=== PATIENT | female | born 1955 | race Caucasian/White ===

== ENCOUNTER → 2018-10-08 | Outpatient (CLI) | payer MEDICAID, OTHER ==
--- NOTE | 2018-10-08 12:44 | RAD ---
EXAM DESCRIPTION: Pelvis, single view CLINICAL HISTORY: M25.561/M25.551 FINDINGS/ IMPRESSION: Mild degenerative changes bilateral hips. 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 No lytic or blastic bony lesion Electronically signed by: Harrison Graf MD 10/08/2018 12:42 PM CDT
--- NOTE | 2018-10-08 12:46 | RAD ---
EXAM DESCRIPTION: Right knee, 4 radiographs CLINICAL HISTORY: M25.561/M25.551 FINDINGS/ IMPRESSION: Medial and lateral meniscal chondrocalcinosis. Standing radiograph demonstrates lateral greater than medial joint space narrowing. Deformity of the lateral plateau, lateral plateau fracture. Disruption of the lateral subchondral cortex with posterior inferior impaction seen on the lateral projection. Moderate suprapatellar joint effusion Electronically signed by: Harrison Graf MD 10/08/2018 12:43 PM CDT
== END ==
LOC: RAD 08:07
PROVIDERS: ATTEND Orthopaedic Surgery
DX: S82.101A Unspecified fracture of upper end of right tibia, initial encounter for closed fracture (principal); M11.261 Other chondrocalcinosis, right knee; M16.0 Bilateral primary osteoarthritis of hip; M47.898 Other spondylosis, sacral and sacrococcygeal region

== ENCOUNTER → 2018-11-23 | Outpatient (CLI) | payer OTHER ==
--- NOTE | 2018-11-23 09:37 | RAD ---
EXAM DESCRIPTION: Right knee, 4 radiographs CLINICAL HISTORY: S82.101D . Lateral tibial plateau fracture FINDINGS/ IMPRESSION: Comparison 10/08/2018. Similar appearance of lateral tibial plateau fracture deformity. No new fracture or worsening impaction Moderate suprapatellar joint effusion. Meniscal chondrocalcinosis medially. No advanced medial femorotibial or patellofemoral arthrosis. Electronically signed by: Harrison Graf MD 11/23/2018 9:36 AM CDT
== END ==
LOC: RAD 08:58
PROVIDERS: ATTEND Orthopaedic Surgery
DX: S82.101D Unspecified fracture of upper end of right tibia, subsequent encounter for closed fracture with routine healing (principal); M11.261 Other chondrocalcinosis, right knee

== ENCOUNTER 2019-02-23 12:01 | Emergency (ER) | payer OTHER ==
[2019-02-23] MEDS ORDERED: IBUPROFEN 200 MG TAB PO ONE (12:30)
[2019-02-23 13:25] VITALS: TEMP 97.5
--- NOTE | 2019-02-23 13:25 | ED.PDOC ---
History of Present Illness - General Chief Complaint: General Time Seen by Provider: 02/23/19 12:12 - History of Present Illness Initial Comments: Patient is a 63 year old who presents c/o RLE pain and swelling for 2 days. Reports cramping and tenderness of her calf in addition to behind her knee. Pain is 5/10, made worse with movement. Denies h/o dvt or PE. She fractured her patella in August and wore a knee immobilizer for 6 weeks but had been doing well since. No new trauma or injury. Allergies/Adverse Reactions: Allergies Aspirin Allergy (Verified 02/23/19 13:12) Anaphylaxis Penicillins Allergy (Verified 02/23/19 13:12) Anaphylaxis Tetanus Toxoid Allergy (Verified 02/23/19 13:12) Anaphylaxis Home Medications: Ambulatory Orders Buspirone HCl 15 mg PO DAILY 02/23/19 HYDROcodone 10MG/APAP 325MG [[place] 10/325] 1 tab PO TID PRN 02/23/19 Lisinopril 20 mg PO DAILY 02/23/19 Pregabalin [Lyrica] 150 mg PO DAILY 02/23/19 Rivaroxaban [Xarelto Starter Pack 15 & 20 mg] 1 tab PO DAILY 30 Days #51 tab 02/23/19 Sertraline HCl 100 mg PO DAILY 02/23/19 Review of Systems - Review of Systems Constitutional: States: no symptoms reported EENTM: States: no symptoms reported Respiratory: States: no symptoms reported Cardiology: States: no symptoms reported Gastrointestinal/Abdominal: States: no symptoms reported Genitourinary: States: no symptoms reported Musculoskeletal: States: muscle pain, muscle stiffness Skin: States: no symptoms reported Neurological: States: no symptoms reported Endocrine: States: no symptoms reported Hematologic/Lymphatic: States: no symptoms reported Family Medical History - Family History Mother Family History: No Known Living Status: Physical Exam - Physical Exam General Appearance: Alert, Comfortable Ears, Nose, Throat: hearing grossly normal, normal ENT inspection Neck: non-tender, full range of motion Respiratory: chest non-tender, lungs clear Cardiovascular/Chest: normal peripheral pulses, regular rate, rhythm Gastrointestinal/Abdominal: normal bowel sounds, non tender Extremity: other - mild unilateral RLE swelling and calf tenderness. 2+ DP. no rash Neurologic: no motor/sensory deficits, alert, normal mood/affect Skin Exam: normal color, warm/dry Progress - Progress Progress: 02/23/19 13:28 MDM Patient presenting with unilateral RLE pain and swelling. H/o immobilization a few months ago. Moderate suspicion of dvt. D-dimer is positive. Unfortunately no US industrial waste treatment technician is available on the weekend. D dimer obtained was positive. Will start patient on Xarelto given high pretest probability. She was given a script for Doppler to be performed this coming Monday. Departure - Departure Clinical Impression: Pain and swelling of right lower leg Disposition: Discharge to Home or Self Care Condition: Good Departure Forms: ED Discharge - Pt. Copy, Patient Portal Self Enrollment Prescriptions: Rivaroxaban [Xarelto Starter Pack 15 & 20 mg] 1 tab PO DAILY 30 Days #51 tab Home Medications: Ambulatory Orders Buspirone HCl 15 mg PO DAILY 02/23/19 HYDROcodone 10MG/APAP 325MG [[place] 10] 1 tab PO TID PRN 02/23/19 Lisinopril 20 mg PO DAILY 02/23/19 Pregabalin [Lyrica] 150 mg PO DAILY 02/23/19 Rivaroxaban [Xarelto Starter Pack 15 & 20 mg] 1 tab PO DAILY 30 Days #51 tab 02/23/19 Sertraline HCl 100 mg PO DAILY 02/23/19
[2019-02-23 13:28] VITALS: BP 150/75; O2SAT 97
== END 2019-02-23 13:30 | disposition home or self-care (01) ==
LOC: ER 12:01
DX: M79.604 Pain in right leg (principal); R60.0 Localized edema; Z88.7 Allergy status to serum and vaccine; Z88.8 Allergy status to other drugs, medicaments and biological substances; Z79.899 Other long term (current) drug therapy

== ENCOUNTER 2019-02-25 09:37 | Emergency (ER) | payer OTHER ==
[2019-02-25 09:57] VITALS: TEMP 96.9
--- NOTE | 2019-02-25 10:30 | ED.PDOC ---
History of Present Illness - General Chief Complaint: Lower Extremity Injury Stated Complaint: RIGHT LEG PAIN AND SWELLING Time Seen by Provider: 02/25/19 09:50 Source: patient Exam Limitations: no limitations - History of Present Illness Initial Comments: 63 y/o F presents to the ED for RLE pain and swelling onset 3 days ago. Pt reports a hx of trauma and a patellar fracture this summer that was managed non- operatively. She had been doing well with her leg up until 3 days ago when she noticed pain and swelling to the R calf. She denies any new trauma or injuries. She denies hx of PE/DVT in herself or her family. The pain is described as a cramping and is rated as 5/10 in severity and is worse with movement and palpation. She was seen in the ED 2 days ago for the swelling and was started on xarelto and told to come in today for US and back to ED for the report. She has also been having some muscle spasms in her lumbar back, which happens from time to time as she has multiple bulging discs. She denies any injury, no incontinence, LE weakness or numbness. She has been taking home hydrocodone, robaxin and OTC lidocaine patches for this. Other than this the pt denies any other complaints at this time. Allergies/Adverse Reactions: Allergies Aspirin Allergy (Verified 02/25/19 09:56) Anaphylaxis Penicillins Allergy (Verified 02/25/19 09:56) Anaphylaxis Tetanus Toxoid Allergy (Verified 02/25/19 09:56) Anaphylaxis Home Medications: Ambulatory Orders Buspirone HCl 15 mg PO DAILY 02/23/19 HYDROcodone 10MG/APAP 325MG [[place] 10325] 1 tab PO TID PRN 02/23/19 Lisinopril 20 mg PO DAILY 02/23/19 Pregabalin [Lyrica] 150 mg PO DAILY 02/23/19 Rivaroxaban [Xarelto Starter Pack 15 & 20 mg] 1 tab PO DAILY 30 Days #51 tab 02/23/19 Sertraline HCl 100 mg PO DAILY 02/23/19 Ibuprofen 800 mg PO Q8H PRN #30 tab 02/25/19 Methocarbamol [Robaxin] 750 mg PO Q8H PRN #30 tab 02/25/19 Review of Systems - Review of Systems Constitutional: Denies: chills, fever EENTM: Denies: blurred vision, throat pain Respiratory: Denies: cough, short of breath Cardiology: Denies: chest pain, edema, palpitations Gastrointestinal/Abdominal: Denies: abdominal pain, nausea, vomiting Musculoskeletal: States: back pain - lumbar , muscle pain - R calf, other - Swelling R calf Skin: Denies: lesions, rash Neurological: Denies: headache, numbness, paresthesia, weakness Past Medical History (General) - Patient Medical History Hx Stroke: No Hx Asthma: Yes Hx Congestive Heart Failure: No Hx Hypertension: Yes Hx Diabetes: No Hx Cancer: No Hx MRSA: No - Vaccination History Hx Tetanus, Diphtheria Vaccination: No Hx Influenza Vaccination: No Hx Pneumococcal Vaccination: No Immunizations Up to Date: No - Social History Hx Tobacco Use: Yes Hx Alcohol Use: No Hx Substance Use: No - Female History Patient is a Female of Child Bearing Age (10 -59 yrs old): No Family Medical History - Family History Mother Family History: No Known Living Status: Physical Exam - Physical Exam General Appearance: Alert, Anxious, Well Developed, Well Nourished Eyes, Ears, Nose, Throat: PERRL/EOMI, normal ENT inspection, pharynx normal Neck: full range of motion, normal inspection Cardiovascular/Respiratory: regular rate, rhythm, no M/R/G, normal peripheral pulses Gastrointestinal/Abdominal: non-tender - soft Back: normal inspection, no CVA tenderness, no vertebral tenderness, decreased range of motion - due to pain and spasm, muscle spasm - lumbar paraspinal muscles bilat Thigh/Hip: normal inspection Leg: pain - R calf and posterior knee, swelling - R calf and posterior knee, other - No ecchymosis or erythema. No warmth. Knee: normal inspection, no evidence of injury, normal ROM Ankle: normal inspection, no evidence of injury, normal ROM Foot: normal inspection, no evidence of injury, other - 2+ DP pulses bilat Neuro/Tendon: normal sensation, normal motor functions Mental Status: alert, oriented x 3, other - Normal motor and sensory. Skin: normal color, warm/dry Progress - Progress Progress: 02/25/19 10:20 Pt recheck: discussed US findings with pt along with plans to stop xarelto and start ibuprofen instead, but to wait until tomorrow to start the ibuprofen so that the xarelto will be out of her system due to increased risk of bleeding if taken together. She was advised to f/u with Dr. Naylor her ortho doctor about the bakers cyst. For her back we discussed ibuprofen, home pain medications and refill of robaxin as needed. She states that she was supposed to have surgery on her back this summer but it was put off due to the knee injury. She was advised to f/u with her doctor about this. Her BP was noted to be elevated in the ED and pt reports that she has been taking her meds and was just very anxious about the US, she was told to continue to monitor this and if it remains elevated to f/u with her PCP. She was told to return to the ED for worsening sx, weakness or other concerns. Pt has voiced understanding and all questions/concerns were addressed. - Results/Orders Results/Orders: RLE Venous US: IMPRESSION: 1. Duplex ultrasound evaluation of the right lower extremity deep venous system showing no evidence of thrombosis. 2. Complicated 1.5 cm Quinn's cyst in the right popliteal fossa. Electronically signed by: Abebe Kelley MD 02/25/2019 9:58 AM CDT Departure - Departure Clinical Impression: Lumbar back pain, Pain of right lower leg Quinn's cyst of knee Qualifiers: Laterality: right Qualified Code(s): M71.21 - Synovial cyst of popliteal space [Quinn], right knee Time of Disposition: 10:35 Disposition: Discharge to Home or Self Care Condition: Fair Departure Forms: ED Discharge - Pt. Copy, Patient Portal Self Enrollment Instructions: DI for Leg Pain, Back Exercises, Low Back Pain in Adults Referrals: Manuel Alcantar MD [Primary Care Provider] - 1-5 Days Bairon Naylor MD [Active Staff] - 1-2 Weeks Prescriptions: Ibuprofen 800 mg PO Q8H PRN #30 tab PRN Reason: Pain Methocarbamol [Robaxin] 750 mg PO Q8H PRN #30 tab PRN Reason: Pain Home Medications: Ambulatory Orders Buspirone HCl 15 mg PO DAILY 02/23/19 HYDROcodone 10MG/APAP 325MG [[place] 10/325] 1 tab PO TID PRN 02/23/19 Lisinopril 20 mg PO DAILY 02/23/19 Pregabalin [Lyrica] 150 mg PO DAILY 02/23/19 Rivaroxaban [Xarelto Starter Pack 15 & 20 mg] 1 tab PO DAILY 30 Days #51 tab 02/23/19 Sertraline HCl 100 mg PO DAILY 02/23/19 Ibuprofen 800 mg PO Q8H PRN #30 tab 02/25/19 Methocarbamol [Robaxin] 750 mg PO Q8H PRN #30 tab 02/25/19 Additional Instructions: Take medications as directed. Call PCP and Dr. Naylor to schedule follow up appointments as soon as possible. Return for uncontrolled or worsening pain, fevers or any other concerns. Comments: Nay Kumari DO [id number]
[2019-02-25 10:38] VITALS: BP 170/93; O2SAT 96
== END 2019-02-25 10:44 | disposition home or self-care (01) ==
LOC: ER 09:37
DX: M79.604 Pain in right leg (principal); M54.5 Low back pain; M71.21 Synovial cyst of popliteal space [Baker], right knee; I10 Essential (primary) hypertension; J45.909 Unspecified asthma, uncomplicated; Z88.0 Allergy status to penicillin; Z88.7 Allergy status to serum and vaccine; Z88.6 Allergy status to analgesic agent

== ENCOUNTER → 2019-02-25 | Outpatient (CLI) | payer OTHER ==
--- NOTE | 2019-02-25 10:00 | US ---
EXAM DESCRIPTION: Venous,Lower Extremity RT: ULTRASOUND. CLINICAL HISTORY: RIGHT LEG PAIN SWELLING COMPARISON: None Available. TECHNIQUE: Castellanos-scale and doppler sonographic evaluation of the deep venous system of the right lower extremity. FINDINGS: Doppler evaluation shows normal color flow and normal phasicity and augmentation of the right common femoral vein, femoral vein, popliteal vein, greater saphenous vein, junction with the CFV. Also normal color flow and normal phasicity and augmentation of the peroneal, and posterior tibial vein. The right lower extremity deep veins were completely compressible; normal occlusion with transducer pressure. Castellanos-scale survey showed no echogenic thrombus within these veins. Complicated cyst in the right popliteal fossa greatest diameter 1.5 cm. IMPRESSION: 1. Duplex ultrasound evaluation of the right lower extremity deep venous system showing no evidence of thrombosis. 2. Complicated 1.5 cm Quinn's cyst in the right popliteal fossa. Electronically signed by: Abebe Kelley MD 02/25/2019 9:58 AM CDT
== END ==
LOC: US 08:55
PROVIDERS: ATTEND Emergency Medicine
DX: M71.21 Synovial cyst of popliteal space [Baker], right knee (principal); R60.9 Edema, unspecified

== ENCOUNTER → 2019-04-08 | Outpatient (CLI) | payer OTHER ==
--- NOTE | 2019-04-08 11:47 | RAD ---
EXAM DESCRIPTION: Knee,Right Complete CLINICAL HISTORY: 63 years Female, LOCALIZED SWELLIN, LUMP AND MASS TECHNIQUE: 4 views of the right knee were performed. COMPARISON: November 23, 2018. FINDINGS: Diffuse osteopenia of the visualized bones noted. No acute fracture or dislocation. Again noted is chondrocalcinosis involving the medial and lateral compartment joint spaces with slight interval worsening in comparison to the prior radiograph from November 23, 2018. Moderate tricompartmental osteoarthritic changes noted. Moderate suprapatellar joint effusion is also seen. The overlying soft tissues appear grossly unremarkable. IMPRESSION: 1. Slight interval worsening of chondrocalcinosis involving the medial and lateral compartment joint spaces in comparison to prior radiographs from November 23, 2018 is noted, which can be seen in CPPD arthropathy. Clinical correlation is recommended. 2. Moderate tricompartmental osteoarthritic changes. Electronically signed by: Naveen Maradiaga MD 04/08/2019 11:46 AM [facility]
== END ==
LOC: RAD 09:51
PROVIDERS: ATTEND Orthopaedic Surgery
DX: R22.9 Localized swelling, mass and lump, unspecified (principal); M17.11 Unilateral primary osteoarthritis, right knee; M11.261 Other chondrocalcinosis, right knee

== ENCOUNTER 2019-05-03 02:44 | Inpatient (IN) | payer OTHER ==
[2019-05-03] MEDS ORDERED: ONDANSETRON INJ 4 MG/2 ML VIAL IV ONE (02:56)
[2019-05-03] MEDS ORDERED: SODIUM CHLORIDE 0.9% 1000ML 1,000 ML IVS ONE ×2 (02:56→05:04)
[2019-05-03] MEDS ORDERED: MORPHINE SULFATE INJ 10 MG/ML VIAL IV ONE ×2 (02:58→07:15)
--- NOTE | 2019-05-03 02:58 | ED.PDOC ---
History of Present Illness - General Chief Complaint: GI Problem Stated Complaint: nause and vomiting Time Seen by Provider: 05/03/19 02:54 Information Source: patient, RN notes reviewed, Vital Signs reviewed - History of Present Illness Initial Comments: Patient presents for epigastric pain, nausea and vomiting after eating dinner that her friend. Friend is not sick with the same symptoms. Patient is currently throwing up complaining of pain in the upper abdomen without radiation. No fevers, constipation or diarrhea. No previous cholecystectomy. Patient unsure of what she had for dinner. Review of Systems - Review of Systems Constitutional: Denies: chills, fever EENTM: Denies: double vision Respiratory: Denies: short of breath Cardiology: Denies: chest pain Gastrointestinal/Abdominal: States: abdominal pain, nausea, vomiting Neurological: Denies: headache Past Medical History (General) - Patient Medical History Hx Stroke: No Hx Asthma: Yes Hx Congestive Heart Failure: No Hx Hypertension: Yes Hx Diabetes: No Hx Cancer: No Hx MRSA: No Surgical History: appendectomy, Hysterectomy - Vaccination History Hx Tetanus, Diphtheria Vaccination: No Hx Influenza Vaccination: No Hx Pneumococcal Vaccination: No - Social History Hx Tobacco Use: Yes Hx Alcohol Use: No Hx Substance Use: No Family Medical History - Family History Mother Family History: No Known Living Status: Physical Exam - Physical Exam General Appearance: Alert, Obvious distress Respiratory: lungs clear, normal breath sounds, no respiratory distress, no accessory muscle use Cardiovascular/Chest: normal peripheral pulses, regular rate, rhythm, no edema, no gallop Peripheral Pulses: 2+ Gastrointestinal/Abdominal: soft, tenderness Rectal Exam: deferred Neurologic: alert, normal mood/affect, oriented x 3 Progress - Progress Progress: Patient presented for evaluation of nausea, vomiting and upper abdominal pain. She was found to have isolated tenderness in the epigastrium. There was no Mu rphy sign on exam. Lipase was WNL and not suggestive of pancreatitis. CMP was not significant for hepatic or biliary derangement. CBC was significant for hemoconcentration and signs of leukocytosis. She was given 2L IV fluids, protonix for gatritis and GI cocktail. CT with contrast was significant for partial SBO from adhesion. Surgery was paged. Patient was given 2g Merrem due to penicillin allergy. NG tube placed. Patient will be admitted for surgical evaluation. 05/03/19 07:[address] Castillo (Surgery). Will consult. Requests medicine admission. - Results/Orders Results/Orders: Reporting MD: Jonnie Archibald Stranding Machine Operator date: Dictation date: CT abdomen and pelvis with contrast on 05/03/2019 CLINICAL INDICATION: Upper abdominal pain, nausea and vomiting TECHNIQUE: Multiple axial images are obtained throughout the abdomen and pelvis following the administration of IV contrast. This exam was performed according to our departmental dose-optimization program, which includes automated exposure control, adjustment of the mA and/or kV according to patient size and/or use of iterative reconstruction technique. Total DLP is 660.68 mGy*cm. COMPARISON: 04/29/2016 FINDINGS: Abdomen: There is a very small hiatal hernia. There is wall thickening of the distal esophagus that may be related to esophagitis, consider follow-up upper endoscopy. The lung bases are clear. The solid abdominal organs are unremarkable. No CT changes of acute pancreatitis are noted. Multiple surgical clips are noted in the abdomen. Mild vascular calcifications are noted. There is no abdominal adenopathy. There is no free fluid or free air within the abdomen. There are dilated fluid-filled loops of proximal and mid small bowel with some decompressed small bowel in the pelvis distally consistent with small bowel obstruction. Exact transition point is not visualized but most likely this is related to an adhesion. Pelvis: Small amount of free fluid is noted in the pelvis. The patient is status post hysterectomy. There is no pelvic adenopathy. Pelvic portion of the GI tract is otherwise unremarkable. Degenerative changes are noted in the spine. There is grade 1 spondylolisthesis at L5 best S1. IMPRESSION: 1. Findings most consistent with early or partial small bowel obstruction with transition point not well visualized but most likely related to an adhesion. 2. Small hiatal hernia with some wall thickening of the distal esophagus that may be related to esophagitis, consider follow-up upper endoscopy. Electronically signed by: Jonnie Archibald 05/03/2019 6:34 AM CADASTRAL ENGINEER 05/03/19 03:02 Hold Metformin x 48Hrs [id number] Laboratory Results WBC 17.7 K/mm3 (4.8-10.8) H 05/03/19 03:30 RBC 5.65 M/mm3 (4.20-5.40) H 05/03/19 03:30 Hgb 16.9 gm/dL (12.0-16.0) H 05/03/19 03:30 Hct 50.2 % (36.0-47.0) H 05/03/19 03:30 MCV 88.8 fl (81.0-99.0) 05/03/19 03:30 MCH 30.0 pg (27.0-31.0) 05/03/19 03:30 MCHC 33.7 g/dL (33.0-37.0) 05/03/19 03:30 RDW 14.3 % (11.5-14.5) 05/03/19 03:30 Plt Count 293 K/mm3 (130-400) 05/03/19 03:30 MPV 9.4 fl (7.40-10.4) 05/03/19 03:30 Absolute Neuts (auto) 15.10 K/uL (1.8-6.8) H 05/03/19 03:30 Absolute Lymphs (auto) 1.50 K/uL (1.0-3.4) 05/03/19 03:30 Absolute Monos (auto) 1.00 K/uL (0.2-0.8) H 05/03/19 03:30 Absolute Eos (auto) 0.10 K/uL (0.0-0.4) 05/03/19 03:30 Absolute Basos (auto) 0.00 K/uL (0.0-0.1) 05/03/19 03:30 Neutrophils % 84.9 % (42.0-78.0) H 05/03/19 03:30 Lymphocytes % 8.7 % (20.0-50.0) L 05/03/19 03:30 Monocytes % 5.8 % (2.0-9.0) 05/03/19 03:30 Eosinophils % 0.4 % (1.0-5.0) L 05/03/19 03:30 Basophils % 0.2 % (0.0-2.0) 05/03/19 03:30 Sodium 135 mmol/L (135-145) 05/03/19 03:30 Potassium 4.3 mmol/L (3.6-5.0) 05/03/19 03:30 Chloride 99 mmol/L (101-111) L 05/03/19 03:30 Carbon Dioxide 20 mmol/L (21-31) L 05/03/19 03:30 Anion Gap 20.3 (12-18) H 05/03/19 03:30 BUN 11 mg/dL (7-18) 05/03/19 03:30 Creatinine 0.63 mg/dL (0.6-1.3) 05/03/19 03:30 BUN/Creatinine Ratio 17.5 (10-20) 05/03/19 03:30 Random Glucose 129 mg/dL (70-105) H 05/03/19 03:30 Serum Osmolality 271.2 mOsm/L (275-295) L 05/03/19 03:30 Lactic Acid 1.5 mmol/L (0.5-2.2) 05/03/19 03:30 Calcium 10.0 mg/dL (8.4-10.2) 05/03/19 03:30 Total Bilirubin 1.1 mg/dL (0.2-1.0) H 05/03/19 03:30 AST 30 IU/L (10-42) 05/03/19 03:30 ALT < 8 IU/L (10-60) L 05/03/19 03:30 Alkaline Phosphatase 101 IU/L (42-121) 05/03/19 03:30 Serum Total Protein 8.1 gm/dL (6.4-8.2) 05/03/19 03:30 Albumin 4.8 g/dl (3.2-5.5) 05/03/19 03:30 Globulin 3.3 gm/dL (2.3-3.5) 05/03/19 03:30 Albumin/Globulin Ratio 1.5 (1.1-1.9) 05/03/19 03:30 Lipase 34 U/L (22-51) 05/03/19 03:30 Departure - Departure Clinical Impression: Small bowel obstruction, Vomiting, Leukocytosis, Dehydration Disposition: Admit Patient Condition: Fair Departure Forms: ED Discharge - Pt. Copy, Patient Portal Self Enrollment Referrals: Manuel Alcantar MD [Primary Care Provider] - 1-2 Weeks Home Medications: Ambulatory Orders Buspirone HCl 15 mg PO DAILY 02/23/19 HYDROcodone 10MG/APAP 325MG [[place] 10325] 1 tab PO TID PRN 02/23/19 Lisinopril 20 mg PO DAILY 02/23/19 Pregabalin [Lyrica] 150 mg PO DAILY 02/23/19 Rivaroxaban [Xarelto Starter Pack 15 & 20 mg] 1 tab PO DAILY 30 Days #51 tab 02/23/19 Sertraline HCl [Sertraline Hydrochloride] 100 mg PO DAILY 02/23/19 Ibuprofen 800 mg PO Q8H PRN #30 tab 02/25/19 Methocarbamol [Robaxin] 750 mg PO Q8H PRN #30 tab 02/25/19 Decision To Admit - Decistion To Admit Decision to Admit Reason: Admit from ER Decision to Admit Date: 05/03/19 Decision to Admit Time: 06:54
[2019-05-03] MEDS ORDERED: PANTOPRAZOLE SODIUM IV 40 MG VIAL IV ONE (03:01)
[2019-05-03] MEDS ORDERED: ALUM & MAG HYDROX-SIMETHICONE 30 ML, LIDOCAINE VISCOUS 2% 15 ML PO ONE ×2 (06:01)
[2019-05-03] MEDS ORDERED: LIDOCAINE HCL 2% (MOUTH-THROAT) 15 ML UD ONE (06:05)
[2019-05-03] MEDS ORDERED: ALUM & MAG HYDROX-SIMETHICONE 30 ML UD ONE (06:05)
--- NOTE | 2019-05-03 06:36 | CT ---
CT abdomen and pelvis with contrast on 05/03/2019 CLINICAL INDICATION: Upper abdominal pain, nausea and vomiting TECHNIQUE: Multiple axial images are obtained throughout the abdomen and pelvis following the administration of IV contrast. This exam was performed according to our departmental dose-optimization program, which includes automated exposure control, adjustment of the mA and/or kV according to patient size and/or use of iterative reconstruction technique. Total DLP is 660.68 mGy*cm. COMPARISON: 04/29/2016 FINDINGS: Abdomen: There is a very small hiatal hernia. There is wall thickening of the distal esophagus that may be related to esophagitis, consider follow-up upper endoscopy. The lung bases are clear. The solid abdominal organs are unremarkable. No CT changes of acute pancreatitis are noted. Multiple surgical clips are noted in the abdomen. Mild vascular calcifications are noted. There is no abdominal adenopathy. There is no free fluid or free air within the abdomen. There are dilated fluid-filled loops of proximal and mid small bowel with some decompressed small bowel in the pelvis distally consistent with small bowel obstruction. Exact transition point is not visualized but most likely this is related to an adhesion. Pelvis: Small amount of free fluid is noted in the pelvis. The patient is status post hysterectomy. There is no pelvic adenopathy. Pelvic portion of the GI tract is otherwise unremarkable. Degenerative changes are noted in the spine. There is grade 1 spondylolisthesis at L5 best S1. IMPRESSION: 1. Findings most consistent with early or partial small bowel obstruction with transition point not well visualized but most likely related to an adhesion. 2. Small hiatal hernia with some wall thickening of the distal esophagus that may be related to esophagitis, consider follow-up upper endoscopy. Electronically signed by: Jonnie Archibald 05/03/2019 6:34 AM [facility]
[2019-05-03] MEDS ORDERED: MEROPENEM 1 GM in SODIUM CHL 0.9% 50ML MIN-BAG+ 50 ML IVPB ONE (06:46)
[2019-05-03] MEDS ORDERED: SODIUM CHL 0.9% 50ML MIN-BAG+ 50 ML IVPB ONE (07:29)
[2019-05-03] MEDS ORDERED: MEROPENEM 1 GM VIAL IVPB ONE (07:29)
--- NOTE | 2019-05-03 07:41 | RAD ---
Study: Single Frontal Radiograph of the Chest. Indication:NG tube placement Comparison: None. Impression: NG tube tip terminates in the fundus of the stomach. Heart size normal. Lungs clear. No acute osseous abnormality. Multiple surgical clips in the left upper quadrant. Electronically signed by: Calvin Rodriguez MD 05/03/2019 7:40 AM [facility]
--- NOTE | 2019-05-03 08:03 | HP ---
SUPERVISING PHYSICIAN: David Marks MD CHIEF COMPLAINT: Nausea and vomiting and abdominal pain. HISTORY OF PRESENT ILLNESS: Ms. Flores is a 63 female patient who presented to the Emergency Room early last night complaining of epigastric pain, nausea and vomiting, after eating dinner with a friend. The patient endorses that she has been throwing up and complaining of pain in the upper abdomen without any radiation. She denied any fevers, constipation, diarrhea. She does have a history of previous cholecystectomy as well as a hysterectomy. A CT in the Emergency Room with contrast showed findings consistent with an early partial small bowel obstruction with a transition point that wasn't visually identified but most likely relates to an adhesion. There is also note of a small hiatal hernia with some wall thickening in the distal esophagus possibly related esophagitis. Laboratory studies showed she had a leukocytosis of 17,700 with a left shift. Chemistries showed normal liver enzymes, lipase is normal. An NG tube was placed, she was started on fluids and is now going to be admitted for surgical consultation for small bowel obstruction. PAST MEDICAL HISTORY: 1. Bipolar, depression. 2. Hypertension. PAST SURGICAL HISTORY: 1. Colon resection due to a GI bleed. 2. Total hysterectomy. 3. Neck surgery. CURRENT MEDICATIONS: 1. Sertraline 100 mg daily. 2. Lyrica 150 mg daily. 3. Lisinopril 20 mg daily. 4. Ibuprofen 800 mg as needed. 5. Buspirone 15 mg daily. ALLERGIES: Aspirin, Penicillin, tetanus toxoid. FAMILY HISTORY: Dad at age 56 with heart valve problems. Mother's history is unknown. She has several brothers with unknown history. SOCIAL HISTORY: The patient lives in [place]. 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 She did have a history of smoking but has not smoked in multiple years. She does not drink alcohol or use illicit drugs. She lives alone. REVIEW OF SYSTEMS: CONSTITUTIONAL: Denies fevers, chills, general malaise. HEENT: Negative for headaches, earache, sore throat, nasal congestion, vision changes. RESPIRATORY: Denies cough, wheezing, shortness of breath. HEART: Denies chest pain, palpitations or syncopal episodes. GI: As noted in history of present illness. Diffuse abdominal pain, nausea or vomiting. No reported diarrhea or constipation. : Denies dysuria, hematuria, polyuria. NEUROLOGICAL: Denies headaches, syncopal episodes, ataxia, seizures or other focal deficits. INTEGUMENTARY: Denies lesions, rashes, moles or unexplained changes. HEMATOLOGICAL: Denies easy bruising, confusion reactions. PHYSICAL EXAMINATION: VITAL SIGNS: On admission showed she was severely hypertensive with a blood pressure of 230/150, oxygen saturation 97%, heart rate 87. She was given pain medication and Ativan in the Emergency Room and prior to admission to the floor, vital signs showed she was still hypertensive but improved with blood pressure of 163/94. Admission weight 71 kg. GENERAL: The patient appears well hydrated. She does seem a little anxious with the NG tube but appears to be in no acute distress. HEENT: Tympanic membranes are clear bilaterally. Nasal shows NG tube in place without any complications. Oropharynx is pink, moist, without any lesions. NECK: Supple, non-tender, full range of motion, no jugular venous distention. CHEST: Lungs clear to auscultation bilaterally without any rhonchi, rales, or wheezes. CARDIOVASCULAR: Regular rate and rhythm without appreciable murmurs, rubs, or gallops. ABDOMEN: Soft with active bowel sounds and diffuse tenderness noted without any point tenderness, rebound tenderness or guarding. EXTREMITIES: Without cyanosis, clubbing, or edema. BACK: Without any CVA or vertebral tenderness. NEUROLOGIC: Cranial nerves II through XII are grossly intact. Facial features were symmetrical. Extraocular movements was negative, there was no notable nystagmus. She is alert and oriented x 3. RECTAL: Deferred. LABORATORY: CBC showed a leukocytosis of 17,700 with [id number], hematocrit 50.2. Platelet count at 293,000, differential did show a left shift. Chemistries showed a normal sodium with anion gap of 20, BUN 11, creatinine 0.63, lactic acid normal at 1.5. Liver enzymes only slightly elevated at 1.1. All other liver functions within normal limits. Lipase normal. Urinalysis showed to be within normal limits. MICROBIOLOGY: Blood cultures pending. RADIOLOGY: Abdominal/pelvic CT with contrast per radiology interpretation showed findings most consistent with early or partial small bowel obstruction with transition point not well visualized but most likely related to an adhesion. There is also note of a small hiatal hernia with some small thickening of the distal esophagus but could be related to esophagitis. Chest x-ray per radiology interpretation shows NG tube tip terminates in the fundus of the stomach. Lungs were clear. There were multiple surgical clips noted in the left upper quadrant. ASSESSMENT: 1. Small bowel obstruction as seen on CT without a clear transition point. 2. Abdominal pain with nausea and vomiting secondary to #1. 3. Hypertensive urgency with exacerbation from pain related to #1. 4. Leukocytosis, uncertain etiology of infectious source with the patient having abdominal pains but could be demarginalization from pain. PLAN: Ms. Flores is going to be admitted for surgical consultation with Dr. Salazar. She will be n.p.o. NG tube will remain at low wall suction. We will provide pain management with morphine or Dilaudid as needed and Zofran or Phenergan for antiemetics. Given that she does have a leukocytosis and cannot fully rule out a current infection, we will go ahead and cover with some Levaquin and Flagyl as she is allergic to penicillin and will repeat CBC in the morning. Dr. Salazar has been consulted. She will be on DVT prophylaxis per protocol. Anticipate length of stay to be at least 2 to 3 days. Until we can transition him to outpatient management, we will continue to monitor and treat as needed. #[id number] [facility]
[2019-05-03] MEDS ORDERED: ONDANSETRON INJ 4 MG/2 ML VIAL IV PRN (09:40)
[2019-05-03] MEDS ORDERED: SODIUM CHLORIDE 0.9% (FLUSH) 10 ML SYG IV PRN (09:40)
[2019-05-03] MEDS ORDERED: IV SET AND CAP CHANGE INJ INJ SCH (10:00)
[2019-05-03] MEDS ORDERED: HYDROmorphone HCL INJ 2 MG/ML VIAL IV ONE (10:22)
[2019-05-03] MEDS: PHENOL THROAT SPRAY 180 ML BTTL MT PRN ×2 (10:24→11:08)
[2019-05-03] MEDS: KCL 20MEQ/D5NS 1,000 ML IVS PRN ×2 (10:24→20:30)
[2019-05-03] MEDS ORDERED: metroNIDAZOLE IV PREMIX 500MG 100 ML IVPB ONE ×3 (14:05→23:09)
[2019-05-03] MEDS: metroNIDAZOLE IV PREMIX 500MG 500 MG in PREMIX BAG 1 BAG IVPB SCH ×2 (14:06→21:55)
[2019-05-03] MEDS ORDERED: levoFLOXacin 750MG IV 750 MG in PREMIX BAG 1 BAG IVPB SCH (15:00)
[2019-05-03] MEDS: MORPHINE SULFATE INJ 10 MG/ML VIAL IV PRN ×2 (16:30→18:42)
[2019-05-04] MEDS: KCL 20MEQ/D5NS 1,000 ML IVS PRN (04:46)
[2019-05-04] MEDS: metroNIDAZOLE IV PREMIX 500MG 500 MG in PREMIX BAG 1 BAG IVPB SCH (05:40)
[2019-05-04] MEDS: busPIRone HCL 5 MG TAB PO SCH (09:37)
[2019-05-04] MEDS: SERTRALINE HCL 50 MG TAB PO SCH (09:37)
[2019-05-04] MEDS: LISINOPRIL 10 MG TAB PO SCH (09:37)
[2019-05-04] MEDS: ENOXAPARIN SODIUM 40 MG/0.4 ML SYG SUBCU SCH (09:37)
[2019-05-04] MEDS: PREGABALIN 75 MG CAP PO SCH (09:38)
--- NOTE | 2019-05-04 11:24 | CONS ---
REASON FOR CONSULTATION: Partial small bowel obstruction. HISTORY OF PRESENT ILLNESS: The patient is a 63 year-old who presented to the Emergency Room with epigastric pain, nausea and vomiting after eating, no blood in the emesis, no diarrhea, no constipation, no history of bloody stools. She has a history of partial obstruction before previous history of colectomy for acute bleeding. She had been evaluated and found to have evidence of partial small bowel obstruction and CT with abdominal distention and had been admitted. At time of examination, she is feeling a bit better. Abdomen is less distended. She has had no more nausea or vomiting. NG tube has only about 100 cc. PAST MEDICAL HISTORY: 1. Bipolar, depression. 2. Hypertension. PAST SURGICAL HISTORY: 1. Colectomy, she does not remember how extensive or the advancement if it was from a GI bleed, no recalling if it was localized significant angiography or nuclear scan or endoscopy. 2. Total hysterectomy. CURRENT MEDICATIONS: 1. Sertraline,. 2. Lyrica.. 3. Lisinopril,. 4. Buspirone.. ALLERGIES: Aspirin, Penicillin. FAMILY HISTORY: Heart disease in her father, otherwise unknown. SOCIAL HISTORY: She used to smoke but quit. She denies any alcohol or drug use. REVIEW OF SYSTEMS: HEENT: She denies fevers, no chills, no headache, no visual changes, sore throat, cough or wheeze. CHEST: No chest pain or palpitations. GI: As above. : No frequency, dysuria or hematuria. NEUROLOGIC: No complaints. PHYSICAL EXAMINATION: VITAL SIGNS: She is afebrile. Pulse in the 60s. Blood pressure 139/85, oxygen saturation 96% on room air. GENERAL: She is conscious and alert, in no distress. HEENT: Head normocephalic and atraumatic. Pupils equal and reactive. Sclera icteric. Oral mucosa moist. NECK: Supple, no jugular venous distention or thyromegaly. CHEST: Clear and equal bilaterally. No wheezing or crackles. HEART: Regular rate and rhythm. No murmurs, rubs, or gallops. ABDOMEN: Soft, no significant tenderness, no rebound, no guarding. Previous surgical scar but no evidence of hernia. No CVA tenderness. EXTREMITIES: No cyanosis, clubbing, or edema. NEUROLOGIC: Normal. LABORATORY: White blood cell count 17, hematocrit 50, platelet count 293,000. Co2 of 20, creatinine 0.6, glucose 129, LFTs are normal. RADIOLOGY: CT scan report is reviewed and reveals a small hiatal hernia, thickening of the distal esophageal wall, some dilated fluid-filled loops of proximal mid small bowel with some decompressed distal bowel, possible partial small bowel obstruction. Recommended some free fluid in the pelvis. OVERALL IMPRESSION: Nausea and vomiting, possible partial small bowel obstruction, no evidence of acute abdomen, pain out of proportion exam, etc. Patient feels better, there is minimal output in the NG tube. She has not passed any gas yet, but overall seems to be much improved and likely if the NG continues to have minimal output and clinical she remains the same, we can remove the NG tube later and begin on clear liquids. Thank you for asking me to evaluate this patient.. #[id number] [facility]
[2019-05-04] MEDS ORDERED: KETOROLAC TROMETHAMINE INJ 60 MG/2 ML VIAL IM ONE (11:25)
[2019-05-04] MEDS ORDERED: ONDANSETRON ODT 8 MG TAB SL PRN (11:25)
[2019-05-04] MEDS ORDERED: PROMETHAZINE SUPP 25 MG SUP PR PRN (11:25)
[2019-05-04] MEDS ORDERED: HYDROcodone 5MG/APAP 325MG 1 EA TAB PO PRN (11:25)
[2019-05-04] MEDS ORDERED: MAGNESIUM HYDROXIDE 30 ML UD PO ONE (11:26)
[2019-05-04] MEDS: POLYETHYLENE GLYCOL 3350 17 GM PCKT PO SCH (12:18)
--- NOTE | 2019-05-04 17:19 | PN ---
DATE: 05/04/19 SUPERVISING PHYSICIAN: David Marks M.D. SUBJECTIVE: The patient has had her nasogastric tube removed overnight. She has not had any additional vomiting or nausea, and feels her abdominal pain has essentially resolved. She just has some soreness. She has been passing gas. OBJECTIVE: VITAL SIGNS: Temperature 98.1, pulse 73, blood pressure 132/71, respirations 16, satting 94% on room air. GENERAL: The patient is resting comfortably. Appears to be in no acute distress. HEENT: Nasogastric tube has been removed. Nares are clear without any acute findings. CHEST: Lung sounds are clear to auscultation bilaterally. HEART: Regular rate and rhythm. ABDOMEN: Soft with some continued tenderness but no rebound tenderness. Bowel sounds are active. Her tenderness is essentially over the epigastric region, but she notes to palpation is more like muscle soreness compared to what she had when she was admitted. NEUROLOGIC: She is alert and oriented times three. LABORATORY: CBC is normalized with a white count of 7,300. Chemistry showed normal electrolytes with normal renal function. Calcium 8.6. Urinalysis was within normal limits. MICROBIOLOGY: Blood cultures remain negative at 24 hours. MEDICAL CONSULTATION: Dr. Salazar. Please see his note for details. RADIOLOGY: Abdominal series two views per radiology interpretation shows large amount of stool within the colon and rectum but no free air is noted beneath the diaphragm. ASSESSMENT: 1. Acute abdominal pain with possible small bowel obstruction evident on CT with the patient showing clinical improvement and tolerating clear liquids. 2. Hypertension with urgency on admission likely exacerbated by #1, now showing to be stable. 3. Leukocytosis, now normalized, probably due to acute demarginalization from her pains on admission with no signs of infection. 4. Moderate colonic constipation possibly contributing to #1. PLAN: Ms. Flores'riaz nasogastric tube has been removed. Dr. Salazar saw her this morning and advanced her to clear liquids. I will go ahead and give her some Milk of Magnesia and MiraLAX given that she appears to be somewhat constipated. She will continue to have pain control as needed. I would anticipate discharging tomorrow after Dr. Salazar is able to see her in followup. When she is discharged she will need to be scheduled for an esophagogastroduodenoscopy through Dr. Salazar's office. Until we can transition her to outpatient management will continue to monitor and treat as needed. #[id number] [facility]
[2019-05-05] MEDS: PREGABALIN 75 MG CAP PO SCH (08:55)
[2019-05-05] MEDS: LISINOPRIL 10 MG TAB PO SCH (08:56)
[2019-05-05] MEDS: busPIRone HCL 5 MG TAB PO SCH (08:56)
[2019-05-05] MEDS: SERTRALINE HCL 50 MG TAB PO SCH (08:56)
[2019-05-05] MEDS: ENOXAPARIN SODIUM 40 MG/0.4 ML SYG SUBCU SCH (08:56)
[2019-05-05] MEDS: POLYETHYLENE GLYCOL 3350 17 GM PCKT PO SCH (08:57)
[2019-05-05 12:44] VITALS: BP 140/75; TEMP 98; O2SAT 97
--- NOTE | 2019-05-06 09:56 | DS ---
SUPERVISING PHYSICIAN: David Marks MD CONSULTING PHYSICIAN: David Salazar MD, General Surgeon ADMISSION DIAGNOSES:: 1. Small bowel obstruction as seen on CT without a clear transition point. 2. Abdominal pain with nausea and vomiting secondary to #1. 3. Hypertensive urgency with exacerbation from pain related to #1. 4. Leukocytosis, uncertain etiology of infectious source with the patient having abdominal pains but could be demarginalization from pain. DISCHARGE DIAGNOSES: 1. Acute abdomen with initial small bowel obstruction on admission as seen on CT with symptoms resolving and patient having bowel movements with no acute symptoms and tolerating clear liquids. 2. Hypertension with urgency initially on admission showing to be stable.after treatment. 3. Leukocytosis, likely due to demarginalization from pains with no signs of infection with white count normalized prior to discharge. 4. Moderate colonic constipation exacerbating #1 with patient having bowel movements prior to discharge. REASON FOR HOSPITALIZATION: Ms. Flores is a 63 female patient who presented to the Emergency Room early last night complaining of epigastric pain, nausea and vomiting, after eating dinner with a friend. The patient endorses that she has been throwing up and complaining of pain in the upper abdomen without any radiation. She denied any fevers, constipation, diarrhea. She does have a history of previous cholecystectomy as well as a hysterectomy. A CT in the Emergency Room with contrast showed findings consistent with an early partial small bowel obstruction with a transition point that wasn't visually identified but most likely relates to an adhesion. There is also note of a small hiatal hernia with some wall thickening in the distal esophagus possibly related esophagitis. Laboratory studies showed she had a leukocytosis of 17,700 with a left shift. Chemistries showed normal liver enzymes, lipase is normal. An NG tube was placed, she was started on fluids and is now going to be admitted for surgical consultation for small bowel obstruction. CONSULTATION SURGICAL SERVICES: Dr. David Salazar, please see his consultation note for details. LABORATORY STUDIES: White count initially did show an elevation at 17,700 with a left shift, with fluids overnight she did show resolution of the white count to normal at 7,300. Hemoglobin and hematocrit were showing to be stable at 13 and 38.9. Differential was showing to be without a left shift. Chemistries on discharge were normal with a potassium of 4, sodium 137, BUN 8, creatinine 0.58, lactic acid normal at 1.5. Calcium normal at 8.6, bilirubin was slightly elevated at 1.1. Lipase normal at 34. Urinalysis was within normal limits. MICROBIOLOGY: Blood cultures were showing negative at 48 hours. RADIOLOGY: Abdominal/pelvic CT in the Emergency Room prior to admission with contrast and per radiology interpretation showed findings consistent with early partial small bowel obstruction with transition point not well visualized but most likely relates to an adhesion. There was also note of a small hiatal hernia with some small wall thickening of the distal esophagus that may be related to esophagitis. Chest x-ray per radiology interpretation showed NG tube tip terminated in the fundus of the stomach. Lungs were clear. She had an abdominal series the morning after admission and per radiology interpretation showed a large amount of stool within the colon and rectum, no free air was noted underneath the diaphragm. HOSPITAL COURSE: Ms. Flores was admitted for a questionable small bowel obstruction with surgical consultation with Dr. Salazar. In the Emergency Room, she did have an NG tube placed. She was initially with fluids and bowel rest. She was seen by Dr. Salazar who advanced her diet. She responded to pain management and was able to tolerate advancement in diet to clear liquids. She was noted to not have any pain on the morning of discharge. She had been given a dose of Miralax and milk of magnesia and had a couple of bowel movements prior to discharge. Her NG tube was removed after there was less than 100 cc residual within 12 hours of placement. She had no complications from the NG tube. It was felt that she showed clinical resolution of her symptoms to the point where she could be continued as an outpatient. DISCHARGE ASSESSMENT: VITAL SIGNS: Temperature 98.0, pulse 65, blood pressure 140/75, respirations 18, oxygen saturation 97% on room air. GENERAL: Patient is up ambulating comfortably and in no acute distress. She is alert. CHEST: Lung sounds clear to auscultation. HEART: Regular rate and rhythm. ABDOMEN: Soft with no noted tenderness on palpation. Bowel sounds are present. EXTREMITIES: No edema. NEUROLOGIC: She is alert and oriented x 3. SKIN: Warm, pink and dry. PLAN: Ms. Flores was discharged on May 05 with instructions to followup with Dr. Salazar. She is to call his office the Monday after discharge. She is also to followup with Dr. Alcantar, her primary care physician. She was told to resume her home medications as instructed and to take Miralax daily and milk of magnesia p.r.n. as needed to prevent constipation. She was encouraged to not use narcotics if possible for pain control but Tylenol and Motrin. She was told to return to the Emergency Room for evaluation if she had any worsening of symptoms or other concerning symptoms. Discharge Diet: Resume usual diet slowly with full liquids to advance as tolerated. Activities: Increase as tolerated. Medications prescribed on discharge: 1. Miralax 17 grams daily. 2. Milk of magnesia as directed p.r.n. for constipation. All other medications prior to hospitalization were continued which included: 1. Sertraline 100 mg daily. 2. Lyrica 150 mg daily. 3. Lisinopril 20 mg daily. 4. Ibuprofen 800 mg every 8 hours if needed. 5. Buspirone 15 mg daily. #[id number] [facility]
== END 2019-05-05 12:45 | disposition home or self-care (01) | DRG 390 ==
LOC: ER 02:44 → OBSVTOIN 08:01 → MS 08:01
PROVIDERS: ADMIT Nurse Practitioner Family; ATTEND Nurse Practitioner Family
DX: K56.51 Intestinal adhesions [bands], with partial obstruction (principal); E86.0 Dehydration; I16.0 Hypertensive urgency; I10 Essential (primary) hypertension; K59.00 Constipation, unspecified; F31.9 Bipolar disorder, unspecified; K44.9 Diaphragmatic hernia without obstruction or gangrene; Z88.0 Allergy status to penicillin; Z88.6 Allergy status to analgesic agent; Z88.7 Allergy status to serum and vaccine; Z90.49 Acquired absence of other specified parts of digestive tract; Z90.710 Acquired absence of both cervix and uterus; Z87.09 Personal history of other diseases of the respiratory system; Z87.891 Personal history of nicotine dependence; Z82.49 Family history of ischemic heart disease and other diseases of the circulatory system; Z79.899 Other long term (current) drug therapy

== ENCOUNTER → 2019-08-20 | Outpatient (CLI) | payer OTHER ==
--- NOTE | 2019-08-20 09:04 | RAD ---
EXAM DESCRIPTION: Knee,Right 1 or 2 Views CLINICAL HISTORY: 63 years Female, PAIN IN RIGHT KNEE AP/LAT TECHNIQUE: 2 views of the right knee were performed. COMPARISON: Radiographs of the right knee dated 04/08/2019. FINDINGS: The visualized bones appear well mineralized. No acute fracture or dislocation. Tricompartmental osteoarthritis slightly worse in the medial tibiofemoral compartment. Chondrocalcinosis. Small suprapatellar joint effusion. The soft tissues appear grossly unremarkable. IMPRESSION: Tricompartmental osteoarthritis slightly worse in the medial tibiofemoral compartment. Chondrocalcinosis. Small suprapatellar joint effusion. Electronically signed by: Xena Hernandez MD 08/20/2019 9:03 AM CDT
== END ==
LOC: RAD 08:41
PROVIDERS: ATTEND Orthopaedic Surgery
DX: M17.11 Unilateral primary osteoarthritis, right knee (principal); M11.261 Other chondrocalcinosis, right knee; M25.461 Effusion, right knee

== ENCOUNTER 2019-11-07 18:43 | Observation (INO) | payer OTHER ==
[2019-11-07] MEDS ORDERED: SODIUM CHLORIDE 0.9% (FLUSH) 10 ML SYG IV PRN (19:01)
[2019-11-07] MEDS ORDERED: ONDANSETRON INJ 4 MG/2 ML VIAL IV ONE (19:01)
[2019-11-07] MEDS ORDERED: NITROGLYCERIN 2% 1 GM UD TOP ONE (19:02)
--- NOTE | 2019-11-07 19:17 | RAD ---
EXAM DESCRIPTION: Chest,1 View CLINICAL HISTORY:64 years Female, chest pain Comparison: Chest radiograph dated 05/03/2019 FINDINGS: No focal lung consolidation. Mild prominence of the interstitium. No pleural effusion. No pneumothorax. Cardiomediastinal silhouette is within normal limits. No acute osseous abnormality. Left upper abdominal postsurgical changes. IMPRESSION: No acute cardiopulmonary disease. Electronically signed by: Oj Arreola DO 11/07/2019 7:16 PM CDT
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
[2019-11-08] MEDS ORDERED: ACETAMINOPHEN 325 MG TAB PO ONE (01:39)
[2019-11-08] MEDS ORDERED: ACETAMINOPHEN 325 MG TAB PO PRN (01:41)
[2019-11-08] MEDS ORDERED: MORPHINE SULFATE INJ 10 MG/ML VIAL IV PRN (01:41)
[2019-11-08] MEDS ORDERED: NITROGLYCERIN 0.4 MG 25 EA TAB SL PRN (01:41)
[2019-11-08] MEDS ORDERED: ASPIRIN (CHEWABLE) 81 MG TAB PO ONE (01:41)
[2019-11-08] MEDS ORDERED: SODIUM CHLORIDE 0.9% (FLUSH) 10 ML SYG IV PRN (01:41)
[2019-11-08] MEDS ORDERED: IV SET AND CAP CHANGE INJ INJ SCH (02:00)
[2019-11-08] MEDS ORDERED: amLODIPine BESYLATE 5 MG TAB PO ONE (02:25)
[2019-11-08] MEDS ORDERED: PANTOPRAZOLE SODIUM IV 40 MG VIAL IV SCH (06:30)
[2019-11-08] MEDS: PREGABALIN 75 MG CAP PO SCH ×3 (08:50→20:50)
[2019-11-08] MEDS: SERTRALINE HCL 50 MG TAB PO SCH (08:51)
[2019-11-08] MEDS: ENOXAPARIN SODIUM 40 MG/0.4 ML SYG SUBCU SCH (08:51)
[2019-11-08] MEDS: SODIUM CHLORIDE 0.9% (FLUSH) 10 ML SYG IV SCH ×2 (08:51→20:51)
[2019-11-08] MEDS: LISINOPRIL 10 MG TAB PO SCH (08:51)
[2019-11-08] MEDS: POLYETHYLENE GLYCOL 3350 17 GM PCKT PO SCH (08:54)
[2019-11-08] MEDS ORDERED: NITROGLYCERIN 0.4 MG/HR PATCH TOP SCH (09:00)
[2019-11-08] MEDS: amLODIPine BESYLATE 5 MG TAB PO SCH (14:47)
[2019-11-08] MEDS: SODIUM CHLORIDE 0.9% 1000ML 1,000 ML IVS PRN (14:47)
[2019-11-08] MEDS ORDERED: traMADol HCL 50 MG TAB ONE (19:36)
[2019-11-08] MEDS ORDERED: IBUPROFEN 400 MG TAB PO PRN (20:58)
[2019-11-08] MEDS ORDERED: TEMAZEPAM 15 MG CAP PO PRN (20:59)
[2019-11-08] MEDS ORDERED: REMOVE OLD PATCH TOP SCH (21:00)
[2019-11-09] MEDS: SODIUM CHLORIDE 0.9% 1000ML 1,000 ML IVS PRN (03:04)
[2019-11-09] MEDS ORDERED: PANTOPRAZOLE SODIUM TAB 40 MG PO ONE (04:43)
[2019-11-09] MEDS ORDERED: PANTOPRAZOLE SODIUM TAB 40 MG PO SCH (06:30)
[2019-11-09] MEDS: POLYETHYLENE GLYCOL 3350 17 GM PCKT PO SCH (09:09)
[2019-11-09] MEDS: PREGABALIN 75 MG CAP PO SCH (09:09)
[2019-11-09] MEDS: amLODIPine BESYLATE 5 MG TAB PO SCH (09:09)
[2019-11-09] MEDS: SERTRALINE HCL 50 MG TAB PO SCH (09:09)
[2019-11-09] MEDS: LISINOPRIL 10 MG TAB PO SCH (09:10)
[2019-11-09] MEDS: ENOXAPARIN SODIUM 40 MG/0.4 ML SYG SUBCU SCH (09:10)
[2019-11-09] MEDS: SODIUM CHLORIDE 0.9% (FLUSH) 10 ML SYG IV SCH (09:10)
[2019-11-09 10:51] VITALS: BP 160/90; TEMP 98.2; O2SAT 98
--- NOTE | 2019-11-09 13:28 | DS ---
SUPERVISING PHYSICIAN: Adilson Hassan M.D. DISCHARGE DIAGNOSIS: 1. Chest pain, extended rule out. 2. Hyponatremia, symptomatic. Etiology uncertain. Possibly related to medication regimen to include Amitriptyline. 3. History of hypertension showing to be uncontrolled. 4. Posttraumatic stress disorder. 5. Chronic insomnia. HISTORY OF PRESENT ILLNESS: This is a 64 year-old female patient who presented to the Emergency Room last night complaining of chest pain. She noted that the chest pains were bilateral, both in left and right side with some radiation to both left and right sided jaw. There were no complaints of shortness of breath or diaphoresis, and the pain resolved with no intervention within 1 to 2 minutes. In addition to the chest pain, she had some nausea, but denied any actual emesis. She did have some tingling in her bilateral upper extremities. By the time she came to the Emergency Room she was actually pain free. Her initial workup showed a sodium of 126 with an osmolality of 253, creatinine was normal at 0.5. Her first 2 sets of troponin were less than 0.02. CBC showed a normal white count without a left shift. Coagulation studies were normal. Urinalysis showed to be unremarkable. Her urine drug screen was positive for cannabinoids. She was also significantly hypertensive on admission that was initially difficult to get controlled with a blood pressure of 133/100, with 97% O2 saturations. After admission to the floor, her blood pressure continued to be 133/105. She was denying chest pain. She was admitted for observation and to further rule out acute coronary syndrome. She has recently just started taking Amitriptyline in the last several months. HOSPITAL COURSE: She was placed in observation for close cardiac monitoring to further rule out acute coronary syndrome. She was given amlodipine and her Lisinopril was discontinued. Her Amitriptyline was on hold in regards to her hyponatremia. She was also placed on fluid restriction with close monitoring of her neurological status. She was on Lovenox for DVT prophylaxis. Overnight her cardiac enzymes remained within normal limits. She had no changes on her EKG nor did she have any further complaints of chest pain. Her blood pressure did somewhat improve to 120/74 and 130/89. She will be discharged home in stable condition. LABORATORY: Her CBC was unremarkable. Her followup chemistry showed a sodium of 131, potassium 4, chloride 101, carbon dioxide 23. Her triglycerides were 88, LDL was 148.8, HDLs are 148.8. Her followup cardiac enzymes were all negative. All other labs and films have been reviewed via the EMR. DISCHARGE PLAN: The patient will be discharged home in stable condition. She is to resume her previous diet and increase her activity as tolerated. She previously has seen Dr. Manuel Reyes in [place] but she lives in [place] now, and I have recommended that she see Dr. Andrae Rosa at [facility] within the next 1 to 2 weeks. In addition to her routine medications, we have discontinued her Amitriptyline and I have given her a prescription of amlodipine for her blood pressure. She is to followup with Dr. Rosa or return to the E.D. for any problems or complications. DISCHARGE MEDICATIONS: 1. Sertraline. 2. Lyrica. 3. Ibuprofen. 4. MiraLAX. 5. Amlodipine. #[id number] [facility]
== END 2019-11-09 12:35 | disposition home or self-care (01) ==
LOC: ER 18:43 → MS 11-08 00:35
PROVIDERS: ADMIT Nurse Practitioner Family; ATTEND Nurse Practitioner Acute Care
DX: R07.89 Other chest pain (principal); E87.1 Hypo-osmolality and hyponatremia; I10 Essential (primary) hypertension; F43.10 Post-traumatic stress disorder, unspecified; F51.04 Psychophysiologic insomnia; K21.9 Gastro-esophageal reflux disease without esophagitis; J45.909 Unspecified asthma, uncomplicated; I34.0 Nonrheumatic mitral (valve) insufficiency; I36.1 Nonrheumatic tricuspid (valve) insufficiency; Z79.899 Other long term (current) drug therapy; Z88.0 Allergy status to penicillin; Z88.6 Allergy status to analgesic agent; Z88.7 Allergy status to serum and vaccine; Z91.018 Allergy to other foods; Z87.891 Personal history of nicotine dependence; Z86.14 Personal history of Methicillin resistant Staphylococcus aureus infection
CPT/HCPCS: 96361 ×2; 96374; 96375; 96372 ×2; J2405; J7030 ×2; J1650 ×2; A4216 ×4; 80048 ×3; 80307; 80061; 36415; 82550; 82553; 85025; 85730; 85610; 84484 ×3; 81001; 80076; 84300; 84443; 83880; 71045; 94760 ×3; 99285; 93306; 93005; G0378

== ENCOUNTER → 2019-11-28 | Outpatient (CLI) | payer OTHER ==
--- NOTE | 2019-11-28 13:49 | RAD ---
EXAM DESCRIPTION: Knee,Right Complete CLINICAL HISTORY: 64 years Female, CLOSED FRACTURE OF TIBIAL PLATEAU COMPARISON: November 23, 2018 Findings: Four views/radiographs Location: Right knee No acute fracture or dislocation. Moderate lateral compartment narrowing. Tricompartmental osteophytes. Meniscal chondrocalcinosis. Similar remote deformity of the lateral tibial plateau. Osteopenia. No significant joint effusion. IMPRESSION: Similar remote deformity of the right lateral tibial plateau. No acute fracture lucency identified. Electronically signed by: Moses Arango MD 11/28/2019 1:47 PM CDT
--- NOTE | 2019-11-28 15:11 | RAD ---
EXAM DESCRIPTION: Pelvis CLINICAL HISTORY: 64 years Female, PAIN IN LEFT HIP COMPARISON: October 08, 2018 FINDINGS: Single AP view the pelvis shows no acute fracture or malalignment. Mild degenerative changes in the pubic symphysis and bilateral hips. The sacroiliac joints are fairly well-maintained. Surgical clips project over the lower abdomen and pelvis. IMPRESSION: Mild degenerative changes, otherwise unremarkable exam. Electronically signed by: Uriah Lemus MD 11/28/2019 3:09 PM CDT
== END ==
LOC: RAD 08:11
PROVIDERS: ATTEND Orthopaedic Surgery
DX: S82.101D Unspecified fracture of upper end of right tibia, subsequent encounter for closed fracture with routine healing (principal); M16.0 Bilateral primary osteoarthritis of hip

== ENCOUNTER 2020-03-25 09:24 | Emergency (ER) | payer OTHER ==
[2020-03-25 09:50] VITALS: TEMP 96; O2SAT 97
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
[2020-03-25 19:47] VITALS: BP 149/94
== END 2020-03-25 10:15 | disposition home or self-care (01) ==
LOC: ER 09:24
DX: F13.239 Sedative, hypnotic or anxiolytic dependence with withdrawal, unspecified (principal); I10 Essential (primary) hypertension; J45.909 Unspecified asthma, uncomplicated; K21.9 Gastro-esophageal reflux disease without esophagitis; Z76.0 Encounter for issue of repeat prescription; Z87.891 Personal history of nicotine dependence; Z79.899 Other long term (current) drug therapy; Z88.6 Allergy status to analgesic agent; Z88.5 Allergy status to narcotic agent; Z88.7 Allergy status to serum and vaccine

== ENCOUNTER 2020-04-26 11:39 | Emergency (ER) | payer OTHER ==
[2020-04-26 11:58] VITALS: BP 172/100; TEMP 98.4; O2SAT 97
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
[2020-04-26] MEDS ORDERED: IBUPROFEN 200 MG TAB PO ONE (12:10)
== END 2020-04-26 12:19 | disposition home or self-care (01) ==
LOC: ER 11:39
DX: H10.9 Unspecified conjunctivitis (principal); J45.909 Unspecified asthma, uncomplicated; I10 Essential (primary) hypertension; K21.9 Gastro-esophageal reflux disease without esophagitis; Z87.891 Personal history of nicotine dependence; Z79.899 Other long term (current) drug therapy; Z88.6 Allergy status to analgesic agent; Z88.0 Allergy status to penicillin; Z88.7 Allergy status to serum and vaccine